=== PATIENT | male | born 1965 | race Caucasian/White ===

== ENCOUNTER 2017-02-03 12:48 | Emergency (ER) | payer OTHER ==
[~2017-02-03] VITALS: Ht 172.7 cm; Wt 60.6 kg
[~2017-02-03 12:48] MED LIST: CITALOPRAM HBR20 MG; LANSOPRAZOLE30 MG; MOTRIN600 MG PO; OMEPRAZOLE40 M1; PEN-VEE K,VEET500 MG PO; PREDNISONE10 MG PO; TYLENOL325 M1 PO; no routine home meds
[2017-02-03 14:09] LABS: HEMATOCRIT 49.7 % (38.0-50.0); MCH 31.9 PG (29.0-34.0); MCHC 33.8 G/DL (30.0-36.0); MCV 94.3 FL (86-99); MEAN PLAT.VOLUME 9.7 uM^3 (9.0-12.4); PLATELET COUNT 301 K/uL (156-360); RBC DIS.WIDTH-CV 13.8 % (11.8-14.6); RBC DIS.WIDTH-SD 47.9 % (39-53); RED BLOOD COUNT 5.27 M/uL (4.00-5.50); WHITE BLOOD COUNT 8.1 K/uL (4.1-10.2)
[2017-02-03 14:14] LABS: ADD MIUA? YES; BILIRUBIN NEGATIVE; BLOOD NEGATIVE; COLOR YELLOW ((YELLOW)); GLUCOSE (STRIP) NEGATIVE; KETONES 20; LEUKOCYTES NEGATIVE; NITRITE NEGATIVE; PROTEIN (STRIP) NEGATIVE; SPECIFIC GRAVITY 1.021 (1.000-1.030)
[2017-02-03 14:15] LABS: BACTERIA RARE /HPF; EPITHELIAL CELLS RARE /HPF; MUCUS TRACE /LPF; RED BLOOD CELLS 0-5 /HPF (0-5); WHITE BLOOD CELLS 0-5 /HPF (0-5)
[2017-02-03 14:20] LABS: CHLORIDE 106 mEq/L (99-109); POTASSIUM 4.7 mEq/L (3.7-5.4); SODIUM 140 mEq/L (136-147)
[2017-02-03 14:21] LABS: GLUCOSE 107 mg/dL (70-99)
[2017-02-03 14:23] LABS: ANION GAP 8 MEQ/L (2-14)
[2017-02-03 14:25] LABS: GFR ESTIMATE (CALCULATED) > 59 mL/min/
[2017-02-03 14:26] LABS: UREA NITROGEN (BUN) 9 mg/dL (9-23)
[2017-02-03] MEDS ORDERED: MIRALAX255 GM PO (14:58)
[2017-02-03] MEDS ORDERED: NORCO 5/3251 TABLET PO (14:58)
[2017-02-03] MEDS ORDERED: NAPROSYN500 MG PO (14:58)
[2017-02-03] MEDS ORDERED: FLEXERIL10 MG PO (14:58)
[2017-02-03 15:35] VITALS: BP 160/76
== END 2017-02-03 15:38 | disposition home or self-care (01) ==
LOC: EME 12:48
PROVIDERS: Nurse Practitioner Family
DX: S39.012A Strain of muscle, fascia and tendon of lower back, initial encounter (principal); E86.0 Dehydration; K59.00 Constipation, unspecified; X50.0XXA Overexertion from strenuous movement or load, initial encounter; Y93.89 Activity, other specified; F17.200 Nicotine dependence, unspecified, uncomplicated
CPT/HCPCS: 74000; 80048; 81003; 85027; 99281; 99284; J1885